=== PATIENT | female | born 1970 | race Caucasian/White ===

== ENCOUNTER 2016-07-14 16:17 | Emergency (ER) | payer OTHER ==
[~2016-07-14] VITALS: Ht 157.5 cm; Wt 85.2 kg
[2016-07-14 16:19] VITALS: TEMP 37; Ht 157.5 cm; Wt 85.2 kg
[2016-07-14] MEDS ORDERED: FAMOTIDINE 20MG/102 ML D5W IV STA (16:36)
[2016-07-14] MEDS ORDERED: SODIUM CHLORIDE 0.9% 1000ML 1,000 ML IV STA (16:36)
[2016-07-14] MEDS ORDERED: ONDANSETRON INJ 2 MG/ML 2 ML VIAL IV STA (16:36)
[2016-07-14 17:25] LABS: BASO % 0.1 %; BASO ABS # 0.01 K/uL (0-0.2); COMPLETE YES; EOS % 1.7 %; HEMATOCRIT 34.6 % (37-47); IG% 0.2 %; LYMPH % 12.5 %; LYMPH ABS # 1.55 K/uL (1.2-3.4); MEAN CELL VOLUME 83.2 fL (80-100); MEAN CORPUSCULAR HEMOGLOBIN 26.4 pg (25-34); MEAN CORPUSCULAR HGB CONC 31.8 g/dl (32-36); MEAN PLATELET VOLUME 11.3 fL (7.4-10.4); MONO % 7.6 %; NEUT % 77.9 %; PLATELET COUNT 279 K/uL (130-400); RED BLOOD COUNT 4.16 M/uL (4.2-5.4); WHITE BLOOD COUNT 12.39 K/uL (4.8-10.8)
[2016-07-14 17:36] LABS: BUN/CREATININE RATIO 20.5 (10-20); CALCIUM 8.4 mg/dl (8.5-10.1); CREATININE 0.74 mg/dl (0.60-1.20)
[2016-07-14 17:38] LABS: ALB/GLOB RATIO 1.1 (0.9-2); PREG INTERNAL NEGATIVE QC NEG CLEAR BACKGROUND; PREG INTERNAL POSITIVE QC POS CONTROL LINE
--- NOTE | 2016-07-14 17:56 | DIAGNOSTIC IMAGING REPORT ---
GALLBLADDER-ABD LIMITED CLINICAL HISTORY: rug pain after eating nausea TECHNIQUE: Ultrasound COMPARISON STUDY: None FINDINGS: Gallstones and sludge within the gallbladder lumen. Normal gallbladder wall. Common bile duct 4 mm. Liver is uniform. Pancreas and right kidney are unremarkable. No evidence for right renal hydronephrosis. IMPRESSION: Gallstones and sludge within the gallbladder lumen. Normal caliber bile ducts. Otherwise negative study Electronically signed by: Silver Wyman M.D. 07/14/2016 5:55 PM Dictated Date/Time: 07/14/2016 5:54 PM
[2016-07-14] MEDS ORDERED: OMEP-105 PO (18:16)
--- NOTE | 2016-07-14 19:03 | EMERGENCY ROOM VISIT NOTE ---
History First contact with patient: 16:29 Chief Complaint: ABDOMINAL PAIN Stated Complaint: ABD PAIN Nursing Triage Summary: pt reports about 30 min after eating chili cheese dogs , started with RUQ abdominal pain and NV History of Present Illness Patient is a 45-year-old white female with past medical history significant for GERD who presents emergency Department via [facility] for evaluation of epigastric abdominal pain and nausea and vomiting that began acutely about an hour ago. Patient states that around 1445, she and her went to a grocery store for some food. She ate 2 chili cheese hot dogs. She states that about 15-20 minutes after eating, she developed some discomfort in the right upper quadrant that radiated into the epigastric region. She states it was sharp and became stabbing and progressively worsened. At its worse she rated it an 8/10. She reports associated nausea and vomited 4. She states that the pain lasted her for roughly 45 minutes at which point it subsided on its own. When that the pain was very severe she states that it made it difficult for her to breathe. The pain resolved in the ambulance before arriving at the emergency department. She reports a history of fairly significant reflux for which she takes omeprazole and sodium bicarbonate. She has never seen gastroenterology or had an EGD. She denies hematemesis. Last bowel movement was yesterday and was normal. She started her regular menses today. She denies any known family history of gallbladder disease. She denies any anterior chest pain, palpitations or shortness of breath. No back or flank pain. At the present time she is completely asymptomatic and rates her discomfort a 0/10. She denies any recent alcohol use. No regular NSAID use. Review of Systems Review of systems as per HPI. All other systems reviewed were negative. 10 systems reviewed. Past Medical/Surgical History Medical Problems: (1) GERD (gastroesophageal reflux disease) Surgical Problems: (1) History of section Electronic medical records are reviewed and summarized as above/below. See Problem List. Social History Smoking Status: Current Every Day Smoker Alcohol Use: occasionally Marital Status: Housing Status: lives with family Occupation Status: employed Current/Historical Medications Scheduled Omeprazole-Sodium Bicarbonate (Zegerid Otc), 1 CAP PO DAILY Allergies Coded Allergies: No Known Allergies (Unverified , 07/14/16) Physical Exam Vital Signs Date Time Temp Pulse Resp B/P Pulse Ox O2 Delivery O2 Flow Rate FiO2 07/14/16 19:24 84 18 162/75 98 07/14/16 18:44 65 20 152/78 94 Room Air 07/14/16 16:19 37.0 74 18 139/87 98 Room Air Physical Exam CONSTITUTIONAL: Patient is a pleasant, well-appearing 45-year-old white female who is awake and alert and in no acute distress. Vital signs are stable. EYES: Pupils equal, round, reactive to light and accommodation. EOMs intact without nystagmus. Sclera are anicteric. ENT: Tympanic membranes intact, with normal landmarks. External canals are clear. Oral and nasopharynx are clear. Mucous membranes are moist, no lesions , tongue and gums appear normal. NECK: No bruits auscultated. Supple without lymphadenopathy. No thyromegaly. No meningeal signs. Full active range of motion without discomfort. CARDIOVASCULAR: Regular rate and rhythm, with normal S1 and S2, no murmur or gallop or rub is heard. No carotid bruits auscultated. No JVD. Peripheral pulses easy to palpable. RESPIRATORY: Breath sounds equal and clear to auscultation without wheezes, rales, or rhonchi heard. Full and equal chest expansion without accessory muscle use or retractions. GI: Bowel sounds are present. Abdomen is soft, nontender, nondistended. No organomegaly. No pulsatile masses. No guarding or rebound. There is no right upper quadrant pain on palpation. Negative Walter's sign. No CVA tenderness. MUSCULOSKELETAL: Full range of motion of extremities x 4 with good strength. No cyanosis, edema, joint tenderness or swelling. No deformity. INTEGUMENTARY: No lesions or rash, normal skin turgor. NEUROLOGICAL: Alert, oriented, and cooperative. Cranial nerves, sensation and strength grossly intact. Pupils round, equal, and react to light, EOMs are full. LYMPH: No lymphadenopathy. Medical Decision & Procedures ER Provider Diagnostic Interpretation: GALLBLADDER-ABD LIMITED CLINICAL HISTORY: rug pain after eating nausea TECHNIQUE: Ultrasound COMPARISON STUDY: None FINDINGS: Gallstones and sludge within the gallbladder lumen. Normal gallbladder wall. Common bile duct 4 mm. Liver is uniform. Pancreas and right kidney are unremarkable. No evidence for right renal hydronephrosis. IMPRESSION: Gallstones and sludge within the gallbladder lumen. Normal caliber bile ducts. Otherwise negative study Laboratory Results 07/14/16 17:00 Red Blood Count 4.16, Mean Corpuscular Volume 83.2, Mean Corpuscular Hemoglobin 26.4, Mean Corpuscular Hemoglobin Concent 31.8, Mean Platelet Volume 11.3, Neutrophils (%) (Auto) 77.9, Lymphocytes (%) (Auto) 12.5, Monocytes (%) (Auto) 7.6, Eosinophils (%) (Auto) 1.7, Basophils (%) (Auto) 0.1, Neutrophils # (Auto) 9.66, Lymphocytes # (Auto) 1.55, Monocytes # (Auto) 0.94, Eosinophils # (Auto) 0.21, Basophils # (Auto) 0.01 07/14/16 17:00 Test 07/14/16 17:00 White Blood Count 12.39 K/uL (4.8-10.8) Red Blood Count 4.16 M/uL (4.2-5.4) Hemoglobin 11.0 g/dL (12.0-16.0) Hematocrit 34.6 % (37-47) Mean Corpuscular Volume 83.2 fL (80-100) Mean Corpuscular Hemoglobin 26.4 pg (25-34) Mean Corpuscular Hemoglobin Concent 31.8 g/dl (32-36) Platelet Count 279 K/uL (130-400) Mean Platelet Volume 11.3 fL (7.4-10.4) Neutrophils (%) (Auto) 77.9 % Lymphocytes (%) (Auto) 12.5 % Monocytes (%) (Auto) 7.6 % Eosinophils (%) (Auto) 1.7 % Basophils (%) (Auto) 0.1 % Neutrophils # (Auto) 9.66 K/uL (1.4-6.5) Lymphocytes # (Auto) 1.55 K/uL (1.2-3.4) Monocytes # (Auto) 0.94 K/uL (0.11-0.59) Eosinophils # (Auto) 0.21 K/uL (0-0.5) Basophils # (Auto) 0.01 K/uL (0-0.2) RDW Standard Deviation 47.2 fL (36.4-46.3) RDW Coefficient of Variation 15.5 % (11.5-14.5) Immature Granulocyte % (Auto) 0.2 % Immature Granulocyte # (Auto) 0.02 K/uL (0.00-0.02) Anion Gap 5.0 mmol/L (3-11) Est Creatinine Clear Calc Drug Dose 96.2 ml/min Estimated GFR () 112.6 Estimated GFR (Non- 97.2 BUN/Creatinine Ratio 20.5 (10-20) Calcium Level 8.4 mg/dl (8.5-10.1) Total Bilirubin 0.3 mg/dl (0.2-1) Aspartate Amino Transf (AST/SGOT) 36 U/L (15-37) Alanine Aminotransferase (ALT/SGPT) 25 U/L (12-78) Alkaline Phosphatase 91 U/L (45-117) Total Protein 7.2 gm/dl (6.4-8.2) Albumin 3.7 gm/dl (3.4-5.0) Globulin 3.5 gm/dl (2.5-4.0) Albumin/Globulin Ratio 1.1 (0.9-2) Lipase 273 U/L (73-393) Human Chorionic Gonadotropin, Qual NEG (NEG) Medications Administered Medications (Trade) Dose Ordered Sig/Ibrahima Route Start Time Stop Time Status Last Admin Dose Admin Sodium Chloride (Nss 1000ml) 1,000 ml @ 999 mls/hr Q1H1M STAT IV 07/14/16 16:36 07/14/16 17:36 DC 07/14/16 16:51 999 MLS/HR Famotidine (Pepcid 20mg/100 ml) 20 mg ONE STAT IV 07/14/16 16:36 07/14/16 16:44 DC 07/14/16 16:50 20 MG Ondansetron HCl (Zofran Inj) 4 mg NOW STAT IV 07/14/16 16:36 07/14/16 16:44 DC 07/14/16 16:50 4 MG ED Course The patient was seen and evaluated as above. Old records are reviewed. IV access was obtained and she was hydrated with normal saline solution. She was medicated with Zofran 4 mg and Pepcid 20 mg IV. CBC, CMP and lipase were obtained. Biliary ultrasound was performed. Laboratory studies did reveal a slightly elevated white count at 12,300. She is slightly anemic with an H&H of 11 and 34. Electrolytes, renal functions, LFTs and lipase are normal. Serum hCG is negative. Biliary ultrasound demonstrates gallstones and sludge within the gallbladder lumen. There is no gallbladder wall thickening or ductal dilatation. All laboratory and diagnostic imaging studies were reviewed with attending physician. The patient has evidence for cholelithiasis, but ultrasound is not indicative of acute cholecystitis. There is no obstruction based on labs. She is essentially pain-free. Her pain may have been related to biliary colic, certainly GERD, gastritis, esophageal spasm were also considered. She remained pain-free while in the emergency department. All laboratory and diagnostic imaging studies were reviewed with her. At this point it was felt that she can be discharged to home, but she was made aware of the worsening signs or symptoms for which she should return to the emergency department. She expressed understanding of this and was agreeable. Medical Decision Differential diagnoses include reflux, gastritis, gastroenteritis, pancreatitis , cholelithiasis, cholecystitis, bowel obstruction, perforation, peptic ulcer disease, among others. Impression Primary Impression: Cholelithiasis Additional Impression: Right upper quadrant abdominal pain Departure Information Referrals Beto Whipple M.D. Patient Instructions My [facility] Additional Instructions Acetaminophen(Tylenol) may be used for fever or pain. Use 1000mg every eight hours as needed. Avoid using more than 3000mg in a 24 hour period. This is available over the counter. Read all the package inserts or medication information paperwork provided. If you have any questions or concerns call your primary provider, pharmacist or the ER for assistance. Rest and drink plenty of fluids as tolerated. Slow sips of water or sports drinks are recommended instead of large amounts all at once. Continue current medications. Once your stomach is settled start with a clear liquid diet (jello, soup broth, etc.) and then advance as tolerated. You should avoid full, heavy meals for about 24 hrs from the time your symptoms resolved. Avoid greasy/fatty foods which could exacerbate your gallbladder. Return to the ER immediately for worsening or persistent abdominal pain, vomiting, fevers, chest pains, difficulty breathing, black or bloody stools, worsening of your condition, or as needed. Follow up with your primary physician in 1-2 days for a recheck of your current condition. Problem Qualifiers Primary Impression: Cholelithiasis Cholelithiasis location: gallbladder Cholecystitis presence: without cholecystitis Biliary obstruction: without biliary obstruction Qualified Codes: K80.20 - Calculus of gallbladder without cholecystitis without obstruction
[2016-07-14 19:24] VITALS: BP 162/75; PULSE 84; O2SAT 98
[2016-11-21] MEDS ORDERED: MULT-506 PO (08:30)
[2016-12-25] MEDS ORDERED: KETO0.5S33 OPR (13:39)
[2016-12-25] MEDS ORDERED: PRED1SUS OPR (13:39)
== END 2016-07-14 19:24 | disposition home or self-care (01) ==
LOC: EDBD 16:17 → C.EDC 16:19
DX: K80.20 Calculus of gallbladder without cholecystitis without obstruction (principal); K21.9 Gastro-esophageal reflux disease without esophagitis; F17.200 Nicotine dependence, unspecified, uncomplicated

== ENCOUNTER 2016-12-01 04:11 | Emergency (ER) | payer OTHER ==
[~2016-12-01] VITALS: Ht 152.4 cm; Wt 79.8 kg
[~2016-12-01 04:11] MED LIST: MULT-506 PO; OMEP-105 PO
[2016-12-01 04:16] VITALS: TEMP 36.6; Ht 152.4 cm; Wt 79.8 kg
[2016-12-01] MEDS ORDERED: IBUPROFEN 600 MG TAB PO STA (04:38)
[2016-12-01] MEDS ORDERED: ACETAMINOPHEN 500 MG TAB PO STA (04:38)
[2016-12-01] MEDS ORDERED: CIPRO 0.2%/HYDROCORTISONE 1% OTIC SUSP 10 ML BTL OT ONE (04:45)
[2016-12-01 04:54] VITALS: BP 164/98; PULSE 78; O2SAT 98
--- NOTE | 2016-12-01 06:18 | EMERGENCY ROOM VISIT NOTE ---
ED Visit Note First contact with patient: 04:32 CHIEF COMPLAINT: Earache HISTORY OF PRESENT ILLNESS: This 46 year old female patient presents to the emergency department and states they have had a left sided earache for the past few days. The pain is moderate, and is gradually increasing. They have noticed swelling and tenderness around the ear canal and pain below the ear on the upper neck. The pain is rated as dull and 6/10. The patient has not been swimming recently, but states that she sweats a lot at work and has had water in her ear. The patient has a history of ear problems in this ear. The patient has no had other URI symptoms. The patient has not had a fever. The patient has taken nothing for relief of the pain. REVIEW OF SYSTEMS: A 6 system review of systems was completed with positives and pertinent negatives listed in the HPI. ALLERGIES: No known allergies MEDICATIONS: No chronic medications PMH: Otherwise healthy SOCIAL HISTORY: Employed and lives locally PHYSICAL EXAM: Vital Signs: Reviewed Nurse's notes, vital signs stable. GENERAL : White female, in no acute distress, non toxic in appearance, well developed, well nourished. SKIN: Normal. MOUTH: The pharynx is normal in appearance and the tonsils are not enlarged. The airway is patent. There are no exudates over the tonsils. EARS: The left external auditory canal is minimally swollen and inflamed and there is positive tragal tenderness. There is white debris in the canal. The tympanic membrane appears pearly and normal. The right tympanic membrane is pearly hernandez without erythema or bulging and the external auditory canal is clear. HEART: Regular rate and rhythm without murmurs gallops or rubs. LUNGS: Clear to auscultation bilaterally without wheezes, rales or rhonchi. No dullness to percussion. No accessory muscle use. No retractions. ED COURSE: Physical exam and history were performed. Nursing notes and EMR were reviewed. The patient has a very slightly erythematous left ear canal with scant debris. There is not gross swelling and the TM is clearly visible. Clinically I suspect an early otitis externa, as evidently the patient has had this in the past. I will provide her a course of Cipro HC drops. Her first dose was provided here in the department. The patient is to follow with her primary care physician in the next few days for recheck. She was otherwise invited back to the ER with any new, worsening, or concerning symptoms. Problem List Medical Problems: (1) GERD (gastroesophageal reflux disease) Status: Chronic Surgical Problems: (1) History of section Status: Resolved Current/Historical Medications Scheduled Multivitamin (Multivitamin), 1 TAB PO QAM Omeprazole-Sodium Bicarbonate (Zegerid Otc), 1 CAP PO QAM Allergies Coded Allergies: No Known Allergies (Unverified , 12/01/16) Vital Signs Date Time Temp Pulse Resp B/P (MAP) Pulse Ox O2 Delivery O2 Flow Rate FiO2 12/01/16 04:54 78 16 164/98 98 12/01/16 04:16 36.6 79 18 156/92 98 Room Air Medications Administered Medications (Trade) Dose Ordered Sig/Ibrahima Route Start Time Stop Time Status Last Admin Dose Admin Ciprofloxacin/ Hydrocortisone (Cipro Hc Otic Susp) 3 drops NOW ONCE OT 12/01/16 04:45 12/01/16 04:46 DC 12/01/16 04:53 3 DROPS Acetaminophen (Tylenol Tab) 1,000 mg NOW STAT PO 12/01/16 04:38 12/01/16 04:39 DC 12/01/16 04:52 1,000 MG Ibuprofen (Motrin Tab) 600 mg NOW STAT PO 12/01/16 04:38 12/01/16 04:39 DC 12/01/16 04:53 600 MG Departure Information Impression Primary Impression: Otitis externa of left ear Dispostion Home / Self-Care Condition GOOD Forms HOME CARE DOCUMENTATION FORM, Work Instructions, Additional Instructions: Patient was seen and evaluated today in the emergency department fo medical care. Return to work on 12/02/2016. Please excuse. IMPORTANT VISIT INFORMATION Patient Instructions My [facility] Additional Instructions You were seen and evaluated today on an emergency basis only. This is not a substitute for, or an effort to provide, complete comprehensive medical care. It is not possible to recognize and treat all injuries or illnesses in a single emergency department visit. For this reason it is recommended that you followup with your primary care physician on Saturday or Saturday for recheck of your condition. Use Cipro HC drops. 3 drops into the left ear twice daily for the next 7 days. For baseline pain relief you may alternate ibuprofen and acetaminophen every 4 hours for pain control. Take 600 mg ibuprofen (Advil) and then 4 hours later take 1000 mg acetaminophen (Tylenol). Do not take more than 3000 mg acetaminophen in a single day. You are welcome to return to the emergency department anytime with new, worsening, or concerning symptoms. Work Instructions Additional Work Instructions: Patient was seen and evaluated today in the emergency department for medical care. Return to work on 12/02/2016. Please excuse.
[2016-12-02] MEDS ORDERED: AMOX500C3 PO (01:05)
[2016-12-25] MEDS ORDERED: PRED1SUS OPR (13:39)
[2016-12-25] MEDS ORDERED: KETO0.5S33 OPR (13:39)
== END 2016-12-01 04:55 | disposition home or self-care (01) ==
LOC: C.EDB 04:12 → C.EDA 04:55
DX: H60.92 Unspecified otitis externa, left ear (principal); K21.9 Gastro-esophageal reflux disease without esophagitis; Z98.891 History of uterine scar from previous surgery; Z79.899 Other long term (current) drug therapy

== ENCOUNTER 2016-12-02 00:37 | Emergency (ER) | payer OTHER ==
[~2016-12-02] VITALS: Ht 152.4 cm; Wt 80.3 kg
[2016-12-02 00:45] VITALS: TEMP 36.7; Ht 152.4 cm; Wt 80.3 kg
[2016-12-02] MEDS ORDERED: AMOX500C3 PO (01:05)
[2016-12-02] MEDS ORDERED: TRAMADOL HCL 50 MG HOME PACK PO ONE (01:15)
[2016-12-02] MEDS ORDERED: AMOXICILLIN HOME PACK 250 MG/TAB PO ONE (01:15)
[2016-12-02 01:23] VITALS: BP 154/97; PULSE 75; O2SAT 99
--- NOTE | 2016-12-02 07:08 | EMERGENCY ROOM VISIT NOTE ---
History First contact with patient: 00:50 Chief Complaint: FACIAL PAIN/INJURY Stated Complaint: FACIAL PAIN History of Present Illness The patient is a 46 year old female who presents to the Emergency Room with complaints of left-sided facial pain for the past several hours. The patient was seen and evaluated yesterday where she was diagnosed with a left otitis externa. She states that she has been using her drops as prescribed and her ear pain has improved. She states now she has left-sided facial pain and she believes it could be from her sinuses or her teeth. She is not had fever or chills. She states that she is not able to afford Advil or Tylenol over-the- counter until Saturday when she gets paid, and has not been taking anything over- the-counter. The patient rates her discomfort an 8/10. Review of Systems More than 10 systems were reviewed and otherwise negative with the exception of history of present illness. Past Medical/Surgical History Medical Problems: (1) GERD (gastroesophageal reflux disease) Surgical Problems: (1) History of section Family History No pertinent family history Social History Smoking Status: Current Every Day Smoker Alcohol Use: occasionally Marital Status: Housing Status: lives with family Occupation Status: employed Current/Historical Medications Scheduled Amoxicillin (Amoxil), 500 MG PO TID Multivitamin (Multivitamin), 1 TAB PO QAM Omeprazole-Sodium Bicarbonate (Zegerid Otc), 1 CAP PO QAM Physical Exam Vital Signs Date Time Temp Pulse Resp B/P (MAP) Pulse Ox O2 Delivery O2 Flow Rate FiO2 12/02/16 01:23 75 16 154/97 99 12/02/16 00:45 36.7 77 20 195/105 96 Room Air Pain Rating (0-10): 10.0 Physical Exam VITALS: Vitals are noted on the nurse's note and reviewed by myself. Vital signs stable. GENERAL: Well-developed, well-nourished, white female, who is in no acute distress and resting comfortably. Patient is cooperative with the examination. HEAD: Normocephalic atraumatic. EARS: Right canal TM appear normal. The left TM is normal. The left canal is without edema that was present yesterday. She does have some white debris that remains in the left side canal. No mastoid or tragus tenderness. EYES: Pupils equal round and reactive to light and accommodation. Conjunctivae without injection, sclerae without icterus. Extraocular movements intact. NOSE: Patent, turbinates without inflammation or discharge. MOUTH: Mucous membranes moist. Tonsils are not enlarged. Dentition overall poor repair, particularly in the left upper jaw. There is no obvious abscess noted. NECK: Supple without nuchal rigidity. No lymphadenopathy. No thyromegaly. Cervical spine is nontender. HEART: Regular rate and rhythm without murmurs gallops or rubs. LUNGS: Clear to auscultation bilaterally without wheezes, rales or rhonchi. No retractions or accessory muscle use. Medical Decision & Procedures Medications Administered Medications (Trade) Dose Ordered Sig/Ibrahima Route Start Time Stop Time Status Last Admin Dose Admin Amoxicillin (Amoxil 250MG Home Pack) 1 homepack UD ONCE PO 12/02/16 01:15 12/02/16 01:16 DC 12/02/16 01:22 1 HOMEPACK Tramadol HCl (Ultram Home Pack) 1 homepack UD ONCE PO 12/02/16 01:15 12/02/16 01:16 DC 12/02/16 01:23 1 HOMEPACK ED Course Physical exam and history were performed. Nursing notes, EMR, and Medication List were personally reviewed. Patient appears to have left-sided facial pain worsening over the past day. She states that her ear pain from yesterday has improved, and clinically this appears to be the case as I did see her yesterday for that. On examination the patient does not have obvious signs of abscess or infection. She isolates most of her discomfort in the left maxillary sinus area as well as her left upper molars in the mouth. I'm unsure if this is being caused by a sinus-related complaint or a dental infection. Regardless the patient will be started on amoxicillin with her first doses provided a home pack. I will also provide her a home pack of tramadol. The patient is to continue her eardrops from yesterday as this seems to be helping. She was otherwise invited back to the ER with any new, worsening, or concerning symptoms and was given discharge instructions as below. The chart was completed utilizing [employer] Voice Recognition Software. Grammatical errors, random word insertions, pronoun errors, and incomplete sentences are an occasional consequence of this system due to software limitations, ambient noise, and hardware issues. Any formal questions or concerns about the content, text, or information contained within the body of this dictation should be directly addressed to the provider for clarification. . Medical Decision Differential diagnosis includes, but is not limited to: Sinusitis, pharyngitis, abscess, dental infection, Rajinder, otitis, and others Medication Reconcilliation Current Medication List: was personally reviewed by me Blood Pressure Screening Blood pressure disposition: Elevated BP felt to be situational, Referred to PCP Impression Primary Impression: Left-sided face pain Departure Information Dispostion Home / Self-Care Condition GOOD Prescriptions Amoxicillin (AMOXIL) 500 Mg Cap 500 MG PO TID for 10 Days, #30 CAP Prov: Isma Ramirez PA-C 12/02/16 Forms HOME CARE DOCUMENTATION FORM, Work Instructions, Additional Instructions: Patient was seen and evaluated today in the emergency department fo medical care. Return to work on 12/03/2016. IMPORTANT VISIT INFORMATION Patient Instructions [facility] Additional Instructions You were seen and evaluated today on an emergency basis only. This is not a substitute for, or an effort to provide, complete comprehensive medical care. It is not possible to recognize and treat all injuries or illnesses in a single emergency department visit. For this reason it is recommended that you followup with your primary care physician this week for further care and evaluation. For baseline pain relief you may alternate ibuprofen and acetaminophen every 4 hours for pain control. Take 600 mg ibuprofen (Advil) and then 4 hours later take 1000 mg acetaminophen (Tylenol). Do not take more than 3000 mg acetaminophen in a single day. Take amoxicillin 500 mg 3 times daily for the next 10 days. You may use tramadol 50 mg (homepack) every 8 hours for breakthrough pain. Do not drink or drive while on this medication. You are welcome to return to the emergency department anytime with new, worsening, or concerning symptoms. Work Instructions Additional Work Instructions: Patient was seen and evaluated today in the emergency department for medical care. Return to work on 12/03/2016.
[2016-12-25] MEDS ORDERED: PRED1SUS OPR (13:39)
[2016-12-25] MEDS ORDERED: KETO0.5S33 OPR (13:39)
== END 2016-12-02 01:25 | disposition home or self-care (01) ==
LOC: C.EDB 00:38
DX: R51 Headache (principal); K21.9 Gastro-esophageal reflux disease without esophagitis; F17.200 Nicotine dependence, unspecified, uncomplicated

== ENCOUNTER → 2016-12-18 | Day surgery (SDC) | payer OTHER ==
[2016-11-21 08:31] VITALS: Ht 151.9 cm; Wt 80.0 kg
[~2016-12-18] VITALS: Ht 151.9 cm; Wt 80.0 kg
[~2016-12-18] MED LIST changes: +500ML BSS 0.3ML EPI 1:1000PF IRRIG ONE; +ACETAMINOPHEN 325 MG TAB PO PRN; +AMVISC PLUS 0.8ML SYRINGE INT OCU ONE; +ATROPINE SULFATE 0.1 MG/ML 5ML SYR IV PRN; +BSS FLUSH ONE; +EpHEDrine SULFATE INJ 50 MG/ML AMP IV PRN; +EpINEphrine INJ 1MG/ML AMP 1 MG/ML AMP ONE; +FENTANYL CITRATE INJ 50 MCG/1 ML 2 ML VIAL ONE; +KETO0.5S33 OPR; +LACTATED RINGER'S 1000ML 500 ML IV SCH; +LIDOCAINE 3.5% OPH GEL PER APPLICATION CHARGE ONE; +LIDOCAINE HCL 1% MPF 2 ML VIAL ONE; +MIDAZOLAM HCL 1 MG/ML 2ML VIAL ONE; +OCUCOAT 1 ML SOLN IO ONE; +PHENYLEPHRINE HCL 10% OP SOLN PER DROP CHARGE OPR SCH; +POVIDONE-IODINE OP SOLN 30 ML BTL ONE; +PRED1SUS OPR; +PROPARACAINE 0.5% OP SOLN PER DROP CHARGE OPR SCH; +TOBRAMYCIN/DEXAMETHASONE OPH OINT PER APPLN CHARGE ONE
[2016-12-18] MEDS: PHENYLEPHRINE HCL 2.5% OP SOLN PER DROP CHARGE OPR SCH ×2 (10:48→10:55)
[2016-12-18] MEDS: TROPICAMIDE 1% OP SOLN PER DROP CHARGE OPR SCH ×2 (10:49→10:56)
[2016-12-18] MEDS: CYCLOPENTOLATE HCL 1% OP SOLN PER DROP CHARGE OPR SCH ×2 (10:50→10:57)
[2016-12-18] MEDS: KETOROLAC 0.5% OP SOLN PER DROP CHARGE OPR SCH ×2 (10:51→10:58)
[2016-12-18] MEDS: GATIFLOXACIN OP SOLN PER DROP CHARGE OPR SCH ×2 (10:52→11:02)
--- NOTE | 2016-12-18 11:26 | History & Physical Bridge - [place] ---
H&P Re-Evaluation Bridge Note: I have examined the patient, reviewed the History & Physical and in the interval since the performance of the History & Physical I have noted the following changes of clinical significance: No changes noted
--- NOTE | 2016-12-18 12:05 | [facility] Operative Report ---
Operative Report Date of Service Dec 18, 2016. Operative Report 1. PREOPERATIVE DIAGNOSIS: Cataract of the right eye. 2. POSTOPERATIVE DIAGNOSIS: Same. 3. PROCEDURE: Phacoemulsification with intraocular lens implantation of the right eye. SURGEON: Dr. Carmelo Palomino. ANESTHESIA: Topical Lidocaine gel, 1% Non- Preserved intracameral Lidocaine, and monitored intravenous sedation. INDICATIONS FOR THE PROCEDURE: The patient is a 46 - year-old female with a history of cataract of the right eye causing significant visual impairment. The details of the proposed procedure were explained to the patient who asked appropriate questions and following discussion of all risks, benefits and alternatives agreed to have the procedure done. 4. OPERATION AND FINDINGS: DESCRIPTION OF PROCEDURE: After informed consent was obtained, the patient was brought to the Operating Room at the [facility]. The patient was placed in a supine position and then the right eye was prepped and draped in the usual sterile fashion for intraocular surgery. A drop of topical Lidocaine gel was placed in the operative eye. A wire lid speculum was then placed in the fornices. A corneal paracentesis was then created temporally. The Non-Preserved Lidocaine was then instilled into the anterior chamber. The anterior chamber was then pressurized with viscoelastic. A 2.0 mm clear corneal incision was then created temporally. A cystotome was inserted into the anterior chamber and used to create a tear in the anterior lens capsule. This capsular tear was then used to create a small flap and the flap was dragged in a counterclockwise direction in order to create a continuous curvilinear capsulorrhexis. Hydrodissection was accomplished with balanced salt solution. Phacoemulsification of the lens nucleus was then performed in a standard [id number] technique. The phaco time was 31 seconds with an average power of 23 %. The remaining cortical material was removed using irrigation aspiration. The capsular bag was then filled with viscoelastic. A Bausch & Lomb MI60L +17.0 diopters lens was then loaded into the injector and injected into the capsular bag. The remaining viscoelastic was removed with the irrigation aspiration handpiece. The wound was hydrated and then checked and found to be watertight. The intraocular pressure was checked and found to be adequate. The wire lid speculum was removed and the patient's face was cleaned and dried. TobraDex ointment was placed in the inferior fornix. The patient was discharged to the Recovery Room having tolerated the procedure well. There were no complications. The patient will be seen tomorrow in the office for follow-up. I attest to the content of the Intraoperative Record and any orders documented therein. Any exceptions are noted below.
--- NOTE | 2016-12-18 12:05 | Discharge Instructions-SurgCtr ---
Discharge Instructions Date of Service Dec 18, 2016. Visit Reason for Visit: Cataract Right Eye Discharge Discharge Diagnosis / Problem: cataract Discharge Goals Goal(s): Improve function Activity Recommendations Activity Limitations: per Instructions/Follow-up section Anesthesia . Post Anesthesia Instructions: If you have had General Anesthesia or IV Sedation: * Do not drive today. * Resume driving when surgeon permits. * Do not make important decisions or sign legal documents today. * Call surgeon for: 1. Temperature elevations greater than 101 degrees F. 2. Uncontrollable pain. 3. Excessive bleeding. 4. Persistent nausea and vomiting. 5. Medication intolerance (nausea, vomiting or rash). * For nausea and vomiting use only clear liquids such as: tea, soda, bouillon until nausea subsides, then gradually increase diet as tolerated. * If you have any concerns or questions, call your surgeon's office. If physician is unavailable and it is an emergency, call 911 or go to the nearest emergency room. . Instructions / Follow-Up Instructions / Follow-Up ACTIVITY RECOMMENDATIONS: * No strenuous lifting, jogging or running for 4 days * No swimming or yard work for 1 week. * Limited bending is permitted, such as putting on shoes. RETURN TO SCHOOL/WORK: No work until seen by physician in office. MEDICATIONS: Resume previous medications unless instructed otherwise by your surgeon. This includes eye drops for glaucoma. Zymaxid/Gatifloxacin (ramos cap) - one drop every 2 hours until bedtime Nevanac/Ilevro/Prolensa/Ketorolac (hernandez cap) - one drop every 4 hours until bedtime Prednisolone/Durezol (white/pink cap, SHAKE WELL) - one drop every 2 hours until bedtime Starting tomorrow - all 3 drops every 4 hours until seen in the office Optive drops - as needed for discomfort SPECIAL CARE INSTRUCTIONS: * Wear eyeshield when sleeping, for four nights. * You may wear your own glasses or sunglasses while awake. * You may read or watch TV * You may shower and wash your face, but be gentle around the eye and pat dry. * Blurry vision and mild irritation are normal. * Call office if pain is more severe or vision becomes dark at . FOLLOW UP VISIT: Follow-up with Dr Palomino tomorrow. Diet Recommendations Home Diet: resume previous diet Procedures Procedures Performed: Right Cataract Phacoemulsification With Intraocular Lens Implant Pending Studies Studies pending at discharge: no Medical Emergencies . Who to Call and When: Medical Emergencies: If at any time you feel your situation is an emergency, please call 911 immediately. . Non-Emergent Contact Non-Emergency issues call your: Director [employer] . . "Provider Documentation" section prepared by Carmelo Palomino. .
[2016-12-18 12:06] VITALS: TEMP 36.3
--- NOTE | 2016-12-18 12:09 | Anesthesia Progress Nt - [facility] ---
Anesthesia Post Op Note Date & Time Dec 18, 2016 at 12:08 Vital Signs Pain Intensity: 0 Vital Signs Past 12 Hours Date Time Temp Pulse Resp B/P (MAP) Pulse Ox O2 Delivery O2 Flow Rate FiO2 12/18/16 10:40 37.1 79 22 131/89 (103) 99 Room Air Notes Mental Status: alert / awake / arousable, participated in evaluation Pt Amnestic to Procedure: Yes Nausea / Vomiting: adequately controlled Pain: adequately controlled Airway Patency, RR, SpO2: stable & adequate BP & HR: stable & adequate Hydration State: stable & adequate Anesthetic Complications: no major complications apparent
[2016-12-18 12:28] VITALS: BP 150/82; PULSE 80; O2SAT 100
== END | disposition home or self-care (01) ==
LOC: X.SURG 09:59
PROVIDERS: ATTEND Ophthalmology
DX: H26.9 Unspecified cataract (principal); K21.9 Gastro-esophageal reflux disease without esophagitis

== ENCOUNTER → 2017-01-08 | Day surgery (SDC) | payer OTHER ==
[2016-12-25 13:39] VITALS: Ht 152.4 cm; Wt 79.1 kg
[~2017-01-08] VITALS: Ht 152.4 cm; Wt 79.1 kg
[~2017-01-08] MED LIST changes: -FENTANYL CITRATE INJ 50 MCG/1 ML 2 ML VIAL ONE; -PHENYLEPHRINE HCL 10% OP SOLN PER DROP CHARGE OPR SCH; +PROPARACAINE 0.5% OP SOLN PER DROP CHARGE OPL SCH; -PROPARACAINE 0.5% OP SOLN PER DROP CHARGE OPR SCH; +TRYPAN BLUE 0.06% FOR SURGI CENTER ONLY OP ONE
[2017-01-08] MEDS: PHENYLEPHRINE HCL 2.5% OP SOLN PER DROP CHARGE OPL SCH ×2 (07:06→07:13)
[2017-01-08] MEDS: TROPICAMIDE 1% OP SOLN PER DROP CHARGE OPL SCH ×2 (07:07→07:14)
[2017-01-08] MEDS: CYCLOPENTOLATE HCL 1% OP SOLN PER DROP CHARGE OPL SCH ×2 (07:08→07:15)
[2017-01-08] MEDS: KETOROLAC 0.5% OP SOLN PER DROP CHARGE OPL SCH ×2 (07:11→07:16)
[2017-01-08] MEDS: GATIFLOXACIN OP SOLN PER DROP CHARGE OPL SCH ×2 (07:12→07:22)
--- NOTE | 2017-01-08 07:34 | History & Physical Bridge - [place] ---
H&P Re-Evaluation Bridge Note: I have examined the patient, reviewed the History & Physical and in the interval since the performance of the History & Physical I have noted the following changes of clinical significance: Diagnosis: Left Cataract Procedure: Left Cataract Removal with Lens Implant No changes noted
[2017-01-08 08:15] VITALS: TEMP 37.1
--- NOTE | 2017-01-08 08:15 | Discharge Instructions-SurgCtr ---
Discharge Instructions Date of Service Jan 08, 2017. Visit Reason for Visit: Cataract Left Eye Discharge Discharge Diagnosis / Problem: cataract Discharge Goals Goal(s): Improve function Activity Recommendations Activity Limitations: per Instructions/Follow-up section Anesthesia . Post Anesthesia Instructions: If you have had General Anesthesia or IV Sedation: * Do not drive today. * Resume driving when surgeon permits. * Do not make important decisions or sign legal documents today. * Call surgeon for: 1. Temperature elevations greater than 101 degrees F. 2. Uncontrollable pain. 3. Excessive bleeding. 4. Persistent nausea and vomiting. 5. Medication intolerance (nausea, vomiting or rash). * For nausea and vomiting use only clear liquids such as: tea, soda, bouillon until nausea subsides, then gradually increase diet as tolerated. * If you have any concerns or questions, call your surgeon's office. If physician is unavailable and it is an emergency, call 911 or go to the nearest emergency room. . Instructions / Follow-Up Instructions / Follow-Up ACTIVITY RECOMMENDATIONS: * No strenuous lifting, jogging or running for 4 days * No swimming or yard work for 1 week. * Limited bending is permitted, such as putting on shoes. RETURN TO SCHOOL/WORK: No work until seen by physician in office. MEDICATIONS: Resume previous medications unless instructed otherwise by your surgeon. This includes eye drops for glaucoma. Zymaxid/Gatifloxacin (ramos cap) - one drop every 2 hours until bedtime Nevanac/Ilevro/Prolensa/Ketorolac (hernandez cap) - one drop every 4 hours until bedtime Prednisolone/Durezol (white/pink cap, SHAKE WELL) - one drop every 2 hours until bedtime Starting tomorrow - all 3 drops every 4 hours until seen in the office Optive drops - as needed for discomfort SPECIAL CARE INSTRUCTIONS: * Wear eyeshield when sleeping, for four nights. * You may wear your own glasses or sunglasses while awake. * You may read or watch TV * You may shower and wash your face, but be gentle around the eye and pat dry. * Blurry vision and mild irritation are normal. * Call office if pain is more severe or vision becomes dark at . FOLLOW UP VISIT: Follow-up with Dr Palomino tomorrow. Diet Recommendations Home Diet: resume previous diet Procedures Procedures Performed: Left Cataract Phacoemulsification With Intraocular Lens Implant Pending Studies Studies pending at discharge: no Medical Emergencies . Who to Call and When: Medical Emergencies: If at any time you feel your situation is an emergency, please call 911 immediately. . Non-Emergent Contact Non-Emergency issues call your: Director [employer] . . "Provider Documentation" section prepared by Carmelo Palomino. .
--- NOTE | 2017-01-08 08:16 | [facility] Operative Report ---
Operative Report Date of Service Jan 08, 2017. Operative Report 1. PREOPERATIVE DIAGNOSIS: Cataract of the left eye. 2. POSTOPERATIVE DIAGNOSIS: Same. 3. PROCEDURE: Phacoemulsification with intraocular lens implantation of the left eye. SURGEON: Dr. Carmelo Palomino. ANESTHESIA: Topical Lidocaine gel, 1% Non- Preserved intracameral Lidocaine, and monitored intravenous sedation. INDICATIONS FOR THE PROCEDURE: The patient is a 46 - year-old female with a history of cataract of the left eye causing significant visual impairment. The details of the proposed procedure were explained to the patient who asked appropriate questions and following discussion of all risks, benefits and alternatives agreed to have the procedure done. The patient had a mature white cataract and therefore plans were made preoperatively to use Vision Blue dye. 4. OPERATION AND FINDINGS: DESCRIPTION OF PROCEDURE: After informed consent was obtained, the patient was brought to the Operating Room at the [facility]. The patient was placed in a supine position and then the left eye was prepped and draped in the usual sterile fashion for intraocular surgery. A drop of topical Lidocaine gel was placed in the operative eye. A wire lid speculum was then placed in the fornices. A corneal paracentesis was then created temporally. The Non-Preserved Lidocaine was then instilled into the anterior chamber. Under an air bubble the anterior lens capsule was painted with Vision Blue dye. The excess dye was then irrigated from the eye using balanced salt solution. The anterior chamber was then pressurized with viscoelastic. A 2.0 mm clear corneal incision was then created temporally. A cystotome was inserted into the anterior chamber and used to create a tear in the anterior lens capsule. This capsular tear was then used to create a small flap and the flap was dragged in a counterclockwise direction in order to create a continuous curvilinear capsulorrhexis. Hydrodissection was accomplished with balanced salt solution. Phacoemulsification of the lens nucleus was then performed in a standard [id number] technique. The phaco time was 19 seconds with an average power of 12 %. The remaining cortical material was removed using irrigation aspiration. The capsular bag was then filled with viscoelastic. A Bausch & Lomb MI60L +15.0 diopters lens was then loaded into the injector and injected into the capsular bag. The remaining viscoelastic was removed with the irrigation aspiration handpiece. The wound was hydrated and then checked and found to be watertight. The intraocular pressure was checked and found to be adequate. The wire lid speculum was removed and the patient's face was cleaned and dried. TobraDex ointment was placed in the inferior fornix. The patient was discharged to the Recovery Room having tolerated the procedure well. There were no complications. The patient will be seen tomorrow in the office for follow-up. I attest to the content of the Intraoperative Record and any orders documented therein. Any exceptions are noted below.
--- NOTE | 2017-01-08 08:20 | Anesthesia Progress Nt - [facility] ---
Anesthesia Post Op Note Date & Time Jan 08, 2017 at 08:20 Vital Signs Pain Intensity: 0 Vital Signs Past 12 Hours Date Time Temp Pulse Resp B/P (MAP) Pulse Ox O2 Delivery O2 Flow Rate FiO2 01/08/17 06:57 36.6 75 16 145/82 (103) 98 Room Air Notes Mental Status: alert / awake / arousable, participated in evaluation Pt Amnestic to Procedure: Yes Nausea / Vomiting: adequately controlled Pain: adequately controlled Airway Patency, RR, SpO2: stable & adequate BP & HR: stable & adequate Hydration State: stable & adequate Anesthetic Complications: no major complications apparent
[2017-01-08 08:36] VITALS: BP 154/99; PULSE 71; O2SAT 95
== END ==
LOC: X.SURG 06:42
PROVIDERS: ATTEND Ophthalmology
DX: H26.9 Unspecified cataract (principal); K21.9 Gastro-esophageal reflux disease without esophagitis; F17.200 Nicotine dependence, unspecified, uncomplicated